=== PATIENT | female | born 1940 | race Caucasian/White ===

== ENCOUNTER → 2018-02-24 | Outpatient (CLI) | payer MEDICARE ==
[2018-02-24 17:17] LABS: THYROID STIMULATING HORMONE < 0.015 uIU/mL (0.465-4.680)
== END ==
LOC: COL.LAB 15:04
PROVIDERS: Family Medicine
DX: E03.9 Hypothyroidism, unspecified (principal)

== ENCOUNTER → 2018-04-26 | Outpatient (CLI) | payer MEDICARE, OTHER ==
[2018-04-26 18:50] LABS: THYROID STIMULATING HORMONE < 0.015 uIU/mL (0.465-4.680)
== END ==
LOC: COL.LAB 15:42
PROVIDERS: Family Medicine
DX: E03.9 Hypothyroidism, unspecified (principal)

== ENCOUNTER 2018-04-29 08:15 | Outpatient (RCR) | payer MEDICARE, OTHER | END 2018-04-29 09:51 | disposition home or self-care (01) | LOC: MKS.ESL.PT 08:15 | DX: M75.02 Adhesive capsulitis of left shoulder (principal) | CPT/HCPCS: G8987-GP; G8988-GP ==

== ENCOUNTER → 2018-07-12 | Outpatient (CLI) | payer MEDICARE, OTHER ==
[2018-07-12 13:06] LABS: HEMOGLOBIN 12.3 g/dl (12.5-16.0); MEAN CELL VOLUME 94 fl (80.0-100.0); MEAN CORPUSCULAR HEMOGLOBIN 31 pg (27.0-31.0); MEAN CORPUSCULAR HGB CONC 32 g/dl (33.0-37.0); MEAN PLATELET VOLUME 10.1 fl (7.4-10.4); PLATELET COUNT 261 K/mm3 (130-400); RED BLOOD COUNT 4.03 M/mm3 (4.10-5.30); REDCELL DISTRIBUTION WIDTH-CV 14.4 % (11.5-14.5)
[2018-07-12 13:23] LABS: CALCIUM 9.4 mg/dL (8.4-10.2); CREATININE, serum 1.19 mg/dL (0.52-1.25); POTASSIUM 4.5 mmol/L (3.4-5.0)
[2018-07-12 13:47] LABS: TSH w REFLEX 2.23 uIU/mL (0.465-4.680)
== END ==
LOC: COL.LAB 12:44
PROVIDERS: Family Medicine
DX: E03.9 Hypothyroidism, unspecified (principal); E55.9 Vitamin D deficiency, unspecified; R53.83 Other fatigue

== ENCOUNTER → 2019-07-01 | Outpatient (CLI) | payer MEDICARE, OTHER ==
[2019-07-01 13:36] LABS: BASO # 0.1 (0.0-0.2); BASO % 0.7 % (0.0-2.0); EOS # 0.2 (0.0-0.7); EOS % 2.4 % (0-4.0); GRAN # 4.2 (1.4-6.5); GRAN % 58.9 % (42.2-75.2); HEMATOCRIT 39.6 % (37.0-47.0); HEMOGLOBIN 12.4 g/dl (12.5-16.0); LYMPH # 2.1 (1.2-3.4); LYMPH % 29.6 % (20.0-51.0); MEAN CELL VOLUME 98 fl (80.0-100.0); MEAN CORPUSCULAR HEMOGLOBIN 31 pg (27.0-31.0); MEAN CORPUSCULAR HGB CONC 31 g/dl (33.0-37.0); MEAN PLATELET VOLUME 10.5 fl (7.4-10.4); MONO # 0.6 (0.1-0.6); MONO % 7.8 % (1.7-9.3); PLATELET COUNT 265 K/mm3 (130-400); RED BLOOD COUNT 4.04 M/mm3 (4.10-5.30); REDCELL DISTRIBUTION WIDTH-CV 14.1 % (11.5-14.5)
[2019-07-01 14:02] LABS: BILIRUBIN,TOTAL 0.5 mg/dL (0.0-1.0); CALCIUM 9.9 mg/dL (8.4-10.2); CREATININE, serum 1.26 (0.52-1.25); POTASSIUM 4.7 mmol/L (3.4-5.0); TOTAL PROTEIN 7.2 gm/dL (6.4-8.2)
[2019-07-01 14:32] LABS: THYROID STIMULATING HORMONE 1.83 uIU/mL (0.465-4.680)
== END ==
LOC: COL.LAB 12:08
PROVIDERS: Family Medicine
DX: E03.9 Hypothyroidism, unspecified (principal); I10 Essential (primary) hypertension; E55.9 Vitamin D deficiency, unspecified; R53.83 Other fatigue; E53.8 Deficiency of other specified B group vitamins

== ENCOUNTER 2019-09-06 13:44 | Emergency (ER) | payer MEDICARE, OTHER ==
[~2019-09-06] VITALS: Ht 152.4 cm; Wt 72.7 kg
[2019-09-06] MEDS ORDERED: INDERAL 10MG10 MG PO (14:07)
[2019-09-06] MEDS ORDERED: DITROPAN 5MG TAB5 MG PO (14:07)
[2019-09-06] MEDS ORDERED: PRINZIDE 12.5 M1 TAB PO (14:08)
[2019-09-06] MEDS ORDERED: EFFEXOR-XR150 MG PO (14:09)
[2019-09-06] MEDS ORDERED: PRIL40 PO (14:09)
[2019-09-06] MEDS ORDERED: SYNTHROID0.05 MG/TA PO (14:09)
[2019-09-06 14:27] LABS: BASO # 0.1 (0.0-0.2); BASO % 0.6 % (0.0-2.0); EOS # 0.3 (0.0-0.7); EOS % 3.2 % (0-4.0); GRAN # 6.2 (1.4-6.5); GRAN % 66.3 % (42.2-75.2); HEMATOCRIT 40.7 % (37.0-47.0); HEMOGLOBIN 13.2 g/dl (12.5-16.0); LYMPH % 21.3 % (20.0-51.0); MEAN CELL VOLUME 98 fl (80.0-100.0); MEAN CORPUSCULAR HEMOGLOBIN 32 pg (27.0-31.0); MEAN CORPUSCULAR HGB CONC 32 g/dl (33.0-37.0); MEAN PLATELET VOLUME 11.9 fl (7.4-10.4); MONO # 0.8 (0.1-0.6); MONO % 8.1 % (1.7-9.3); PLATELET COUNT 255 K/mm3 (130-400); RED BLOOD COUNT 4.15 M/mm3 (4.10-5.30); REDCELL DISTRIBUTION WIDTH-CV 13.2 % (11.5-14.5)
[2019-09-06 14:33] LABS: ALANINE AMINOTRANSFERASE 7 U/L (9-52); ALBUMIN 4.3 gm/dL (3.5-5.0); ALKALINE PHOSPHATASE 112 U/L (50-136); ANION GAP 11 mmol/L (7-16); AST,SGOT 32 U/L (15-37); BILIRUBIN,TOTAL 0.3 mg/dL (0.0-1.0); BLOOD UREA NITROGEN 28 mg/dL (7-17); CALCIUM 9.7 mg/dL (8.4-10.2); CARBON DIOXIDE 22 mmol/L (22-30); CHLORIDE 104 mmol/L (98-107); CREATININE, serum 1.34 (0.52-1.25); GLUCOSE 120 mg/dL (74-106); POTASSIUM 3.9 mmol/L (3.4-5.0); SODIUM 137 mmol/L (137-145); TOTAL PROTEIN 7.7 gm/dL (6.4-8.2)
[2019-09-06 14:45] LABS: TROPONIN-I < 0.012 ng/mL (0.000-0.035)
[2019-09-06] MEDS ORDERED: DOXYCYCLINE 10100 MG PO (16:57)
[2019-09-06] MEDS ORDERED: PREDNISONE20 MG PO (16:57)
[2019-09-06 17:24] VITALS: BP 121/78; PULSE 86; TEMP 98.2
== END 2019-09-06 17:30 | disposition home or self-care (01) ==
LOC: COL.ER 13:44
PROVIDERS: Emergency Medicine
DX: J20.9 Acute bronchitis, unspecified (principal); E78.5 Hyperlipidemia, unspecified; I10 Essential (primary) hypertension
CPT/HCPCS: J7030; J7512

== ENCOUNTER → 2020-10-19 | Outpatient (CLI) | payer MEDICARE, OTHER ==
[~2020-10-19] MED LIST: DITROPAN 5MG TAB5 MG PO; DOXYCYCLINE 10100 MG PO; EFFEXOR-XR150 MG PO; INDERAL 10MG10 MG PO; PREDNISONE20 MG PO; PRIL40 PO; PRINZIDE 12.5 M1 TAB PO; SYNTHROID0.05 MG/TA PO
== END ==
LOC: COL.RAD 13:07
DX: I12.9 Hypertensive chronic kidney disease with stage 1 through stage 4 chronic kidney disease, or unspecified chronic kidney disease (principal); N18.32 Chronic kidney disease, stage 3b

== ENCOUNTER 2021-08-27 13:45 | Outpatient (RCR) | payer MEDICARE, OTHER | END 2021-09-09 08:44 | disposition home or self-care (01) | LOC: WSOT 13:45 | DX: S69.92XA Unspecified injury of left wrist, hand and finger(s), initial encounter (principal) ==

== ENCOUNTER 2022-07-06 17:38 | Emergency (ER) | payer MEDICARE, OTHER ==
[~2022-07-06] VITALS: Ht 157.5 cm; Wt 78.5 kg
[2022-07-06 18:19] VITALS: TEMP 98
[2022-07-06] MEDS ORDERED: AMOXICILLIN 50500 MG PO (18:35)
[2022-07-06] MEDS ORDERED: NORCO 325 MG-51 TAB PO (18:36)
[2022-07-06 18:54] VITALS: BP 135/92; PULSE 73
== END 2022-07-06 18:51 | disposition home or self-care (01) ==
LOC: COL.ER 17:38
DX: K08.89 Other specified disorders of teeth and supporting structures (principal)